=== PATIENT | male | born 1980 | race Caucasian/White ===

== ENCOUNTER → 2016-12-24 | Outpatient (CLI) | payer BC ==
[~2016-12-24] MED LIST: ALBUTEROL17 GM INH; BACITRACIN30 GM TOP; BACTRIM DS TABL1 TA1 PO; BACTROBAN15 GM TOP; BENZONATATE PO; HUMALOG100 U/ML; HUMALOG100 U/ML SUBQ; INSULIN PUMP; LANTUS100 U/ML SQ; LANTUS100 U/ML SUBQ; NAPROSYN500 MG PO; PEN-VEE K PO; PHENERGAN25 M1 PO; ROBAXIN500 MG PO; VIBRAMYCIN100 M1 PO; VOLTAREN75 MG PO; ZOFRAN ODT4 MG PO
--- NOTE | ~2016-12-24 | CR63 ---
[facility]. [facility] A Service of [facility] & [facility] RADIOLOGY TEXT RESULTS PATIENT: MARCELINA FLOYD LOCATION: [facility] : [birth year] UNIT #: [id number] AGE: [address]: EDITA MCKEON APRN SEX: M ORDER DR: [id number] [address] [id number] O MR#: [id number] Acc #: [id number] NAME: MARCELINA FLOYD : 1980 SEX: M STUDY DATE/TIME: 12/24/2016 17:01 UNIT: SRAD ROOM: STUDY DESCRIPTION: CR Chest 2 View Attending Physician: Edita Mckeon Aprn Ordering Physician: Edita Mckeon Aprn Primary Care Physician: Edita Mckeon Aprn MEDICAL IMAGING REPORT This report is preliminary unless electronic signature is present. EXAM Chest PA and lateral, 12/24/2016 COMPARISON 08/31/2016 HISTORY SUPPLIED Shortness of breath, cough and congestion for 3-4 days. FINDINGS PA and lateral views of the chest are obtained. The cardiovascular configuration of the chest appears normal. Lungs re clear. Old healed rib fracture of the right sixth rib is again noted and unchanged. CONCLUSION Stable chest. No active disease. Dictated by... Evan Armstrong M.D. THIS IS AN ELECTRONICALLY VERIFIED REPORT Evan Armstrong M.D. at 12/25/2016 10:35 AM YASMIN/cinda TD: 12/24/2016 23:07 JOB #: [id number] MEDICAL IMAGING REPORT Page 1 of 1
== END | disposition home or self-care (01) ==
LOC: SRAD 16:53
DX: R06.02 Shortness of breath (principal)
CPT/HCPCS: 71020

== ENCOUNTER 2017-04-17 19:08 | Emergency (ER) | payer BC ==
--- NOTE | ~2017-04-17 | CR263 ---
[facility] A Service [facility] RADIOLOGY TEXT RESULTS PATIENT: MARCELINA FLOYD LOCATION: SED : 80 UNIT #: [id number] AGE: [address]: Evan Cervantes MD SEX: M ORDER DR: [id number] [place] [id number] E MR#: [id number] Acc #: [id number] NAME: MARCELINA FLOYD : 1980 SEX: M STUDY DATE/TIME: 04/17/2017 20:00 UNIT: SED ROOM: STUDY DESCRIPTION: CR Toe 2 Views Great Rt Attending Physician: Evan Ceravntes M.D. Ordering Physician: Evan Cervantes M.D. Primary Care Physician: Edita Day Aprn MEDICAL IMAGING REPORT This report is preliminary unless electronic signature is present. EXAM Right great toe series, 04/17/2017. HISTORY 36-year-old male in the ED complaining of right great toe pain, bruising and swelling. Symptoms for about 4 days. The patient is a diabetic. No known acute injury. TECHNIQUE Three-view right great toe series. FINDINGS The exam shows diffuse soft tissue swelling involving the great toe. No visible soft tissue gas or radiopaque soft tissue foreign body. No bony destruction or arthropathy is identified to suggest osteomyelitis or joint space infection. IMPRESSION Soft tissue swelling. Right great toe series is otherwise negative. Dictated by... Denny Hampton M.D. THIS IS AN ELECTRONICALLY VERIFIED REPORT Denny Hampton M.D. at 04/18/2017 4:55 PM MIGDALIA/beena TD: 04/18/2017 01:04 JOB #: [id number] MEDICAL IMAGING REPORT [facility] A [facility] RADIOLOGY TEXT RESULTS PATIENT: MARCELINA FLOYD LOCATION: SED : 80 UNIT #: [id number] AGE: [address]: Evan Cervantes MD SEX: M ORDER DR: Page 1 of 1
[~2017-04-17 19:08] MED LIST changes: -INSULIN PUMP
[2017-04-17] MEDS ORDERED: INSULIN PUMP (19:23)
== END 2017-04-17 21:38 | disposition home or self-care (01) ==
LOC: SED 19:08
DX: S90.111A Contusion of right great toe without damage to nail, initial encounter (principal); E11.9 Type 2 diabetes mellitus without complications; J45.909 Unspecified asthma, uncomplicated; F17.200 Nicotine dependence, unspecified, uncomplicated; X58.XXXA Exposure to other specified factors, initial encounter; Y92.9 Unspecified place or not applicable
CPT/HCPCS: 73660; 99283